=== PATIENT | female | born 1995 | race African-American/Black ===

== ENCOUNTER → 2016-09-22 | Outpatient (CLI) | payer OTHER ==
[2015-07-08 20:38] VITALS: BP 162/89
--- NOTE | 2016-09-23 10:29 | KCIC ---
PROCEDURE Pelvic ultrasound. HISTORY Abnormal uterine bleeding. TECHNIQUE Transabdominal imaging was performed. Transvaginal imaging was also performed to better evaluate the endometrial stripe and adnexa. COMPARISON None. FINDINGS Uterus measures 8.7 x 3.8 x 4.5 centimeters. Endometrial stripe is homogeneous measuring 11 millimeters in thickness. A few probable nabothian cysts are noted. There is no free pelvic fluid. Color flow and waveform is documented for both ovaries. Ovaries are slightly enlarged, 6.2 x 2.6 x 3.1 centimeters on the right and 4.3 x 3.1 x 3.3 centimeters on the left. Multiple follicles are noted bilaterally, although follicles are not predominantly peripheral. None of the follicles are dominant, the largest about 15 millimeters. IMPRESSION - No evidence of adnexal torsion or mass. - Slightly enlarged ovaries with multiple follicles, although the follicles are not peripherally positioned. Polycystic ovarian syndrome can still be considered clinically. - Nabothian cysts. Electronically signed by: Elton Apple MD (Sep 23, 2016 10:27:49)
== END | disposition home or self-care (01) ==
LOC: KCIC US 14:18
PROVIDERS: ATTEND Obstetrics & Gynecology
DX: N92.6 Irregular menstruation, unspecified (principal); N88.8 Other specified noninflammatory disorders of cervix uteri
CPT/HCPCS: 76830; 76856

== ENCOUNTER 2016-10-28 06:56 | Day surgery (SDC) | payer MEDICAID ==
[~2016-10-28] VITALS: Ht 167.6 cm; Wt 93.9 kg
[2016-10-28] MEDS ORDERED: fentaNYL PF VIAL 100 MCG/2 ML VIAL IV PRN ×2 (07:00)
[2016-10-28] MEDS ORDERED: PROCHLORPERAZINE 10 MG/2 ML VIAL. IV PRN (07:00)
[2016-10-28] MEDS ORDERED: ONDANSETRON PF 4 MG/2 ML VIAL. IV PRN (07:00)
[2016-10-28] MEDS ORDERED: HYDROmorphone 2 MG/ML VIAL IV PRN (07:00)
[2016-10-28] MEDS ORDERED: MORPHINE SULFATE 2 MG/ML DISP.SYRIN. IV PRN (07:00)
[2016-10-28] MEDS ORDERED: IV RINGERS,LACTATED 1000ML 1,000 ML IV SCH (07:00)
[2016-10-28] MEDS ORDERED: LIDOCAINE 1% 1 ML SYRINGE. ID PRN (07:00)
[2016-10-28] MEDS ORDERED: MEDR5TAB PO (07:27)
[2016-10-28] MEDS ORDERED: fentaNYL PF VIAL 100 MCG/2 ML VIAL ONE (07:47)
[2016-10-28] MEDS ORDERED: DEXAMETHASONE SOD PHOS 20 MG/5 ML VIAL. ONE (07:47)
[2016-10-28] MEDS ORDERED: LIDOCAINE 2% 100 MG/5 ML SYRINGE. ONE (07:47)
[2016-10-28] MEDS ORDERED: ONDANSETRON PF 4 MG/2 ML VIAL. ONE (07:47)
[2016-10-28] MEDS ORDERED: MIDAZOLAM HCL/PF 2 MG/2 ML VIAL. ONE (07:47)
[2016-10-28] MEDS ORDERED: PROPOFOL 20 ML IV ONE (07:47)
[2016-10-28] MEDS ORDERED: FAMOTIDINE 20 MG/2 ML VIAL ONE (07:47)
[2016-10-28] MEDS ORDERED: SEVOFLURANE 31 TO 60 MINUTES. IH ONE (09:00)
--- NOTE | 2016-10-28 09:12 | PDOC ---
BRIEF OPERATIVE NOTE Pre-Op Diagnosis Endometrial polyps Post-Op Diagnosis Same Procedure Performed Op [facility] [place] Surgeon Dr. Chacko Anesthesia Type: General Blood Loss Less than 10 ml Specimens Obtained endometrial polyps Findings nml size uterus with endometrial polyps Complications none Additional Remarks ptNÉSTOR Garcia Jr, MD October 28, 2016 09:12
--- NOTE | 2016-10-28 09:12 | DISCH ---
DISCHARGE INSTRUCTIONS Condition on Discharge Condition on Discharge: Stable Activity After Discharge Activity Instructions for Disc: Activity as tolerated Driving Instructions after Dis: Do not drive today Diet after Discharge Diet after Discharge: Regular Contacting the DRSaad after DC Call your doctor for: Concerns you may have Follow-Up Follow up with: Dr. Chacko in 1 week. NÉSTOR CHACKO Jr, MD October 28, 2016 09:12
[2016-10-28] MEDS ORDERED: HYDR-971 PO (09:22)
[2016-10-28] MEDS ORDERED: HYDROcodone/APAP 5/325MG 1 TAB TABLET PO ONE (09:45)
[2016-10-28 09:51] LABS: NEG OBC UR NEG; POS OBC UR POS
[2016-10-28 10:14] VITALS: BP 145/90
--- NOTE | 2016-10-28 10:20 | OP ---
DATE OF SURGERY: PREOPERATIVE DIAGNOSIS: Endometrial polyps. POSTOPERATIVE DIAGNOSIS: Endometrial polyps. PROCEDURE: Operative hysteroscopy. SURGEON: Néstor Chacko M.D. ANESTHESIA: GETA. ESTIMATED BLOOD LOSS: Less than ____ mL. COMPLICATIONS: None. FINDINGS: Normal size uterus with endometrial polyps. SUMMARY: A 21-year-old female who had known endometrial polyps from an office diagnostic hysteroscopy who was counseled to have operative hysteroscopy for removal of endometrial polyps with the Truclear device. The patient was counseled on risks, benefits and expectations and voiced a clear understanding to proceed. DESCRIPTION OF PROCEDURE: The patient was taken to surgery suite and placed in dorsal lithotomy position where she was prepped with Betadine solution and draped in a sterile fashion. After adequate anesthesia, a weighted speculum and curved [place] placed vaginally. The anterior lip of the cervix grasped with a single tooth tenaculum. Cervix was dilated with Viridiana dilators up to size 7 and the Truclear hysteroscope was then placed. There were multiple endometrial polyps. Fallopian tube ostia appeared patent bilaterally. The endometrial polyps were then removed with the Truclear device until there was homogenous endometrial cavity. The Truclear device was removed. Single tooth tenaculum and weighted speculum were removed. The patient tolerated the procedure well and was taken to recovery room in stable condition. Sponge count correct x 3. The total fluid volume was 1600, fluid loss was ____ mL. NÉSTOR CHACKO MD DR: DONNA/jim JOB#: [id number] / [id number]
--- NOTE | 2016-10-29 17:22 | PATHOLOGY ---
PATHOLOGY REPORT * * * * * * * * FINAL DIAGNOSIS: Endometrial curettings: - Early secretory endometrium. See comment. COMMENT: Microscopic sections of the endometrial curettings reveal segments of early secretory endometrium in addition to several segments of lower uterine segment and endocervical tissue. There is no evidence of hyperplasia or malignancy. REPORT ELECTRONICALLY SIGNED BY: Edgar Baker M.D. DATE/TIME: 10/29/2016 17:21 * * * * * * * * GROSS PATHOLOGY: Received in suction sack in formalin and labeled "endometrial polyp" are multiple fragments of brownish mucosa compatible with endometrium. The traffic representative curettings range in length from 1-3 mm in greatest dimension. These have an aggregate measurement of approximately 1 cm. They are placed in a tissue bag and submitted entirely in cassette A1. BRANDENK:maddy; d/t: 10/28-10/2016) INITIAL CPT CODE(S): A; 65481 Professional services performed [place] [facility] [place] [address] Technical services performed by [facility] at [address] [place] [address]. SPECIMEN(S) RECEIVED: A.Endometrial polyp CLINICAL HISTORY: Endometrial polyp PATIENT: DANILO HURTADO Rudy /AGE: 309/07/1995 (Age: 21) PATIENT #: [id number] ALT CASE #: SPECIMEN COLLECTION DATE: 10/28/2016 SPECIMEN RECEIVED DATE: 10/28/2016 [facility] - [address] [place] [address] - PHONE: [phone] * * * END OF REPORT * * *
== END 2016-10-28 10:50 | disposition home or self-care (01) ==
LOC: SURG 06:56
PROVIDERS: ATTEND Obstetrics & Gynecology
DX: N84.0 Polyp of corpus uteri (principal); I10 Essential (primary) hypertension
CPT/HCPCS: 58558; 81025; J0690; J1100; J2250; J2405; J2704; J3010; S0028; 88305

== ENCOUNTER 2019-02-19 15:34 | Emergency (ER) | payer MEDICAID, OTHER ==
[~2019-02-19] VITALS: Ht 172.7 cm; Wt 104.3 kg
[~2019-02-19 15:34] MED LIST: HYDR-3164 PO; MEDR5TAB PO
[2019-02-19 17:36] VITALS: BP 161/85
[2019-02-19 18:10] LABS: BASO # 0.1 x10^3/uL (0.0-0.2); BASO % 1 % (0-3); EOS % 1 % (0-3); HEMATOCRIT 39.2 % (36.0-47.0); HEMOGLOBIN 13.1 g/dL (12.0-15.5); LYMPH # 2.3 x10^3/uL (1.0-4.8); LYMPH % 25 % (24-48); MEAN CORPUSCULAR HEMOGLOBIN 28 pg (25-35); MEAN CORPUSCULAR HGB CONC 34 g/dL (31-37); MEAN CORPUSCULAR VOLUME 84 fL (79-100); MONO # 0.5 x10^3/uL (0.0-1.1); MONO % 5 % (0-9); NEUT # 6.5 x10^3/uL (1.8-7.7); NEUT % 69 % (31-73); PLATELET COUNT 226 x10^3/uL (140-400); RED BLOOD COUNT 4.67 x10^6/uL (3.50-5.40); RED CELL DISTRIBUTION WIDTH 14.4 % (11.5-14.5); WHITE BLOOD COUNT 9.4 x10^3/uL (4.0-11.0)
[2019-02-19 18:14] LABS: BILIRUBIN,URINE NEGATIVE (NEG); CLARITY,URINE CLEAR; COLOR,URINE YELLOW; NITRITE,URINE NEGATIVE (NEG); PROTEIN,URINE NEGATIVE (NEG-TRACE); UROBILINOGEN,URINE 0.2 mg/dL (0.2 mg/dL)
[2019-02-19 18:25] LABS: SQUAMOUS EPITHELIAL CELL,UR MOD /LPF
[2019-02-19 18:26] LABS: CALCIUM 9.3 mg/dL (8.5-10.1); CREATININE 0.9 mg/dL (0.6-1.0); GFR 93.9; POTASSIUM 3.6 mmol/L (3.5-5.1)
[2019-02-19 18:26] LABS: BACTERIA,URINE 0 /HPF (0-FEW); WBC,URINE 0 /HPF (0-4)
--- NOTE | 2019-02-19 18:41 | PHYS DOC ---
Past Medical History Past Medical History: Hypertension, Other Additional Past Medical Histor: PCOS Past Surgical History: No Surgical History Alcohol Use: None Drug Use: None Adult General Chief Complaint Chief Complaint: VAGINAL BLEEDING HPI HPI Patient is a 23 year old AA female who presents tot he ER with complaints of irregular vaginal bleeding. PT states she has been having dark red vaginal discharge with small clots for the last week. She reports her LMP was on 01/26/19 and states that the bleeding started before her next cycle was to start. She took a test at home that was negative. She denies any abnormal vaginal discharge or odor prior to the onset of bleeding. Pt denies any pain. ROS Pt denies any fever, cough, abdominal pain, dysuria, hematuria, or back pain. She denies any dizziness or lightheadedness. She denies any nausea, vomiting, or diarrhea. All other ROS is neg unless otherwise noted in HPI. Review of Systems Review of Systems See Above Allergies Allergies Allergies Coded Allergies Type Severity Reaction Last Updated Verified No Known Drug Allergies 10/26/16 No Physical Exam Physical Exam See Above Constitutional: Well developed, well nourished, no acute distress, non-toxic appearance, obese. [] HENT: Normocephalic, atraumatic, bilateral external ears normal, nose normal. [] Eyes: PERRLA, EOMI, conjunctiva normal, no discharge. [] Neck: Normal range of motion, no tenderness, supple, no stridor. [] Cardiovascular:Heart rate regular rhythm Lungs & Thorax: Respirations even and unlabored, no retractions, no respiratory distress Pelvic Exam: Product Assurance Engineer present Anabell POMPA Abdomen: Nontender, soft External Genitalia: Normal Skin Speculum: Normal vaginal mucosa, small amount of dark bloody cervical discharge noted Bimanual: No adnexal masses or tenderness, No CMT Skin: Warm, dry, no erythema, no rash. [] Extremities: No cyanosis, ROM intact, no edema. [] Neurologic: Alert and oriented X 3, no focal deficits noted. [] Psychologic: Affect normal, judgement normal, mood normal. [] Current Patient Data Vital Signs Vital Signs Date Time Temp Pulse Resp B/P (MAP) Pulse Ox O2 Delivery O2 Flow Rate FiO2 02/19/19 17:36 98.4 112 18 161/85 (110) 97 Room Air 98.4 Lab Values Laboratory Tests Test 02/19/19 17:45 02/19/19 18:00 02/19/19 18:03 Urine Collection Type Unknown Urine Color Yellow Urine Clarity Clear Urine pH 6.0 Urine Specific [place] <=1.005 Urine Protein Negative mg/dL (NEG-TRACE) Urine Glucose (UA) Negative mg/dL (NEG) Urine Ketones (Stick) Negative mg/dL (NEG) Urine Blood Large (NEG) Urine Nitrite Negative (NEG) Urine Bilirubin Negative (NEG) Urine Urobilinogen Dipstick 0.2 mg/dL (0.2 mg/dL) Urine Leukocyte Esterase Negative (NEG) Urine RBC 11-20 /HPF (0-2) Urine WBC 0 /HPF (0-4) Urine Squamous Epithelial Cells Mod /LPF Urine Bacteria 0 /HPF (0-FEW) Urine Mucus Slight /LPF White Blood Count 9.4 x10^3/uL (4.0-11.0) Red Blood Count 4.67 x10^6/uL (3.50-5.40) Hemoglobin 13.1 g/dL (12.0-15.5) Hematocrit 39.2 % (36.0-47.0) Mean Corpuscular Volume 84 fL (79-100) Mean Corpuscular Hemoglobin 28 pg (25-35) Mean Corpuscular Hemoglobin Concent 34 g/dL (31-37) Red Cell Distribution Width 14.4 % (11.5-14.5) Platelet Count 226 x10^3/uL (140-400) Neutrophils (%) (Auto) 69 % (31-73) Lymphocytes (%) (Auto) 25 % (24-48) Monocytes (%) (Auto) 5 % (0-9) Eosinophils (%) (Auto) 1 % (0-3) Basophils (%) (Auto) 1 % (0-3) Neutrophils # (Auto) 6.5 x10^3/uL (1.8-7.7) Lymphocytes # (Auto) 2.3 x10^3/uL (1.0-4.8) Monocytes # (Auto) 0.5 x10^3/uL (0.0-1.1) Eosinophils # (Auto) 0.0 x10^3/uL (0.0-0.7) Basophils # (Auto) 0.1 x10^3/uL (0.0-0.2) Sodium Level 142 mmol/L (136-145) Potassium Level 3.6 mmol/L (3.5-5.1) Chloride Level 103 mmol/L (98-107) Carbon Dioxide Level 26 mmol/L (21-32) Anion Gap 13 (6-14) Blood Urea Nitrogen 9 mg/dL (7-20) Creatinine 0.9 mg/dL (0.6-1.0) Estimated GFR (Cockcroft-Gault) 93.9 Glucose Level 96 mg/dL (70-99) Calcium Level 9.3 mg/dL (8.5-10.1) POC Urine HCG, Qualitative Hcg negative (Negative) Laboratory Tests 02/19/19 18:00 Laboratory Tests 02/19/19 18:00 Microbiology 02/19/19 Wet Prep - Final, Complete EKG EKG [] Radiology/Procedures Radiology/Procedures [] Course & Med Decision Making Course & Med Decision Making Pertinent Labs and Imaging studies reviewed. (See chart for details) dx: Dysfunctional uterine bleeding Patient denies any concern for sexually transmitted infection, low suspicion for STI after physical exam. Wet prep is unremarkable, urine is unremarkable. Urine hCG is negative. CBC unremarkable, BMP unremarkable. Patient was advised to follow-up with Dr. Chacko for further evaluation and treatment of irregular menses. Patient verbalized an understanding of home care, medications, follow-up, and return to ED instructions and was in agreement with the plan of care. [] Dragon Disclaimer Dragon Disclaimer This electronic medical record was generated, in whole or in part, using a voice recognition dictation system. Departure Departure Impression: Primary Impression: Dysfunctional uterine bleeding Disposition: 01 HOME, SELF-CARE Condition: STABLE Referrals: NO PCP (PCP) NÉSTOR CHACKO Jr, MD Patient Instructions: Uterine Bleeding, Dysfunctional, [id number] Additional Instructions: Follow-up with Dr. Chacko for further evaluation of irregular menstrual cycle. Return to the ER if your symptoms worsen. ANDRIA MCCRAY CABLE ASSEMBLER AND SWAGER Feb 19, 2019 18:41
[2019-02-21 19:10] LABS: GC PROBE Negative (Negative)
== END 2019-02-19 19:02 | disposition home or self-care (01) ==
LOC: ER 15:34
DX: N93.8 Other specified abnormal uterine and vaginal bleeding (principal); I10 Essential (primary) hypertension
CPT/HCPCS: 36415; 80048; 81001; 81025; 85025; 87491; 87591; 99284; Q0111

== ENCOUNTER 2019-06-02 08:17 | Emergency (ER) | payer OTHER ==
[~2019-06-02] VITALS: Ht 172.7 cm; Wt 104.3 kg
[2019-06-02] MEDS ORDERED: ONDANSETRON ODT 4 MG TAB.RAPDIS. PO ONE (09:15)
[2019-06-02 09:28] LABS: BILIRUBIN,URINE NEGATIVE (NEG); CLARITY,URINE CLEAR; COLOR,URINE AMBER; NITRITE,URINE NEGATIVE (NEG); PH,URINE 5.5; PROTEIN,URINE NEGATIVE (NEG-TRACE); UROBILINOGEN,URINE 0.2 mg/dL (0.2 mg/dL)
[2019-06-02 09:45] LABS: BACTERIA,URINE FEW /HPF (0-FEW); RBC,URINE OCC /HPF (0-2); SQUAMOUS EPITHELIAL CELL,UR MANY /LPF
[2019-06-02] MEDS ORDERED: ONDA4TAB7 PO (10:18)
[2019-06-02] MEDS ORDERED: HYDR25TA PO (10:18)
--- NOTE | 2019-06-02 10:18 | PHYS DOC ---
Past Medical History Past Medical History: Hypertension, Other Additional Past Medical Histor: PCOS Past Surgical History: No Surgical History Alcohol Use: None Drug Use: None Adult General Chief Complaint Chief Complaint: DIZZY/LIGHT HEADED HPI HPI Patient is a 23 year old female patient with history of hypertension who presents with complaining of dizziness and nausea. Patient states she had dizziness and nausea since last night that getting worse since this morning. Patient denies vomiting, focal neuro deficit, headache, shortness of breath, chest pain, , fever and chills, history of the same problem. Patient states she cannot sleep at night for several days and thinks that the dizziness is related to lack of sleep. Review of Systems Review of Systems Constitutional: Denies fever or chills [] Eyes: Denies change in visual acuity, redness, or eye pain [] HENT: Denies nasal congestion or sore throat [] Respiratory: Denies cough or shortness of breath [] Cardiovascular: No additional information not addressed in HPI [] GI: Denies abdominal pain,vomiting, bloody stools or diarrhea , reports nausea[] : Denies dysuria or hematuria [] Musculoskeletal: Denies back pain or joint pain [] Integument: Denies rash or skin lesions [] Neurologic: Denies headache, focal weakness or sensory changes [] Endocrine: Denies polyuria or polydipsia [] All other systems were reviewed and found to be within normal limits, except as documented in this note. Current Medications Current Medications Current Medications Medications (Trade) Dose Ordered Sig/Poonam Start Time Stop Time Status Last Admin Dose Admin Ondansetron HCl (Zofran Odt) 4 mg 1X ONCE 06/02/19 09:15 06/02/19 09:16 DC 06/02/19 09:11 4 MG Allergies Allergies Allergies Coded Allergies Type Severity Reaction Last Updated Verified No Known Drug Allergies 10/26/16 No Physical Exam Physical Exam Constitutional: Well developed, well nourished, mild distress, non-toxic appearance. [] HENT: Normocephalic, atraumatic, bilateral external ears normal, oropharynx moist, no oral exudates, nose normal. [] Eyes: PERRLA, EOMI, conjunctiva normal, no discharge. [] Neck: Normal range of motion, no tenderness, supple, no stridor. [] Cardiovascular:Heart rate regular rhythm, no murmur [] Lungs & Thorax: Bilateral breath sounds clear to auscultation [] Abdomen: Bowel sounds normal, soft, no tenderness, no masses, no pulsatile masses. [] Skin: Warm, dry, no erythema, no rash. [] Back: No tenderness, no CVA tenderness. [] Extremities: No tenderness, no cyanosis, no clubbing, ROM intact, no edema. [] Neurologic: Alert and oriented X 3, normal motor function, normal sensory function, no focal deficits noted. [] Psychologic: Affect normal, judgement normal, mood normal. [] Current Patient Data Vital Signs Vital Signs Date Time Temp Pulse Resp B/P (MAP) Pulse Ox O2 Delivery O2 Flow Rate FiO2 06/02/19 08:34 97.5 98 18 135/89 (104) 96 97.5 Lab Values Laboratory Tests Test 06/02/19 08:45 06/02/19 08:46 Urine Collection Type Unknown Urine Color [place] Urine Clarity Clear Urine pH 5.5 Urine Specific [place] >=1.030 Urine Protein Negative mg/dL (NEG-TRACE) Urine Glucose (UA) Negative mg/dL (NEG) Urine Ketones (Stick) Trace mg/dL (NEG) Urine Blood Negative (NEG) Urine Nitrite Negative (NEG) Urine Bilirubin Negative (NEG) Urine Urobilinogen Dipstick 0.2 mg/dL (0.2 mg/dL) Urine Leukocyte Esterase Small (NEG) Urine RBC Occ /HPF (0-2) Urine WBC 1-4 /HPF (0-4) Urine Squamous Epithelial Cells Many /LPF Urine Bacteria Few /HPF (0-FEW) Urine Mucus Marked /LPF POC Urine HCG, Qualitative Hcg negative (Negative) EKG EKG [] Radiology/Procedures Radiology/Procedures [] Course & Med Decision Making Course & Med Decision Making Pertinent Labs reviewed. (See chart for details) Evaluation of patient in ER showed 23-year-old female patient with complaining of neck, sleep and nausea and dizziness. Patient had unremarkable physical exam and negative test and UA. Patient for definitive treatment with Zofran in ER. Plan discharge patient home to diagnose of nausea and insomnia. Dragon Disclaimer Dragon Disclaimer This electronic medical record was generated, in whole or in part, using a voice recognition dictation system. Departure Departure Impression: Primary Impression: Nausea Additional Impressions: Insomnia Dizziness Disposition: HOME, SELF-CARE (at 1014) Condition: IMPROVED Referrals: NO PCP (PCP) Patient Instructions: Dizziness, Insomnia, Nausea, Adult Additional Instructions: Drink plenty of liquids Follow-up with your primary care physician in 3-5 days Return to ER if not getting better Scripts Ondansetron Hcl (ZOFRAN) 4 Mg Tablet 1 TAB PO PRN Q6-8HRS for nausea, #12 TAB Prov: ELLIS ELLIOTT MD 06/02/19 Hydroxyzine Hcl (HYDROXYZINE HCL) 25 Mg Tablet 1 TAB PO QHS PRN for itching, #10 TAB Prov: ELLIS ELLIOTT MD 06/02/19 Problem Qualifiers Additional Impressions: Insomnia Insomnia type: unspecified Qualified Codes: G47.00 - Insomnia, unspecified ELLIS ELLIOTT MD Jun 02, 2019 10:18
[2019-06-02 10:22] VITALS: BP 134/91
== END 2019-06-02 10:24 | disposition home or self-care (01) ==
LOC: ER 08:17
DX: R42 Dizziness and giddiness (principal); G47.00 Insomnia, unspecified; I10 Essential (primary) hypertension
CPT/HCPCS: 81001; 81025; 87086; 99284; Q0162

== ENCOUNTER 2019-12-06 06:18 | Emergency (ER) | payer OTHER ==
[~2019-12-06] VITALS: Ht 172.7 cm; Wt 104.5 kg
[~2019-12-06 06:18] MED LIST changes: +HYDR25TA PO; +ONDA4TAB7 PO
--- NOTE | 2019-12-06 06:33 | PHYS DOC ---
Past Medical History Past Medical History: Hypertension, Other Additional Past Medical Histor: PCOS Past Surgical History: No Surgical History Smoking Status: Never Smoker Alcohol Use: None Drug Use: None General Adult EDM: Chief Complaint: PAIN ON URINATION HPI: HPI: Patient is a 24 year old female presents with report of burning with urination which is been ongoing since yesterday. Denies nausea or vomiting. Denies fever or chills. Denies trauma. Denies . Review of Systems: Review of Systems: Constitutional: Denies fever or chills Eyes: Denies redness or eye pain HENT: Denies nasal congestion or sore throat Respiratory: Denies cough or shortness of breath Cardiovascular: Denies chest pain or palpitations GI: Denies abdominal pain, nausea, or vomiting : Denies hematuria; reports dysuria Musculoskeletal: Denies back pain or joint pain Integument: Denies rash or skin lesions Neurologic: Denies headache, focal weakness or sensory changes Complete systems were reviewed and found to be within normal limits, except as documented in this note. Allergies: Allergies: Allergies Coded Allergies Type Severity Reaction Last Updated Verified No Known Drug Allergies 10/26/16 No Physical Exam: PE: Constitutional: Well developed, well nourished, no acute distress, non-toxic appearance HENT: Normocephalic, atraumatic Eyes: Conjunctiva normal, no discharge Neck: Normal range of motion, no tenderness, supple Lungs & Thorax: No respiratory distress, no wheezing Abdomen: Soft, no tenderness Skin: Warm, dry, no erythema, no rash Extremities: No tenderness, ROM intact Neurologic: Alert and oriented X 3, no focal deficits noted Psychologic: Affect normal, judgment normal EKG: EKG: [] Radiology/Procedures: Radiology/Procedures: [] Course & Med Decision Making: Course & Med Decision Making Pertinent Lab studies reviewed. (See chart for details) Patient presents with report of dysuria. UA with signs of infection. Pyridium and keflex initiated. Upreg negative. Patient stable for discharge with outpatient follow-up with PCP. Discussed findings and plan with patient, who acknowledges understanding and agreement. Jacob Disclaimer: Jacob Disclaimer: This electronic medical record was generated, in whole or in part, using a voice recognition dictation system. Departure Departure Impression: Primary Impression: Urinary tract infection Qualified Codes: N30.00 - Acute cystitis without hematuria Disposition: HOME, SELF-CARE Condition: STABLE Referrals: NO PCP (PCP) Patient Instructions: Urinary Tract Infection, [place]ag-[place]inu Scripts Cephalexin (KEFLEX) 500 Mg Capsule 500 MG PO TID for 7 Days, #21 CAP Prov: KATIE SHRESTHA DO 12/06/19 Phenazopyridine Hcl (PYRIDIUM) 200 Mg Tablet 200 MG PO TID, #6 TAB Prov: KATIE SHRESTHA DO 12/06/19 Justicifation of Admission Dx: Justifications for Admission: Justification of Admission Dx: N/A KATIE SHRESTHA DO Dec 06, 2019 06:32
[2019-12-06 06:50] LABS: BILIRUBIN,URINE NEGATIVE (NEG); CLARITY,URINE CLEAR; COLOR,URINE YELLOW; NITRITE,URINE NEGATIVE (NEG); PH,URINE 6.5 (<5.0-8.0); PROTEIN,URINE 30 mg/dL (NEG-TRACE); UROBILINOGEN,URINE 0.2 mg/dL (0.2 mg/dL)
[2019-12-06 07:00] LABS: BACTERIA,URINE MODERATE /HPF (0-FEW); RBC,URINE 0 /HPF (0-2); SQUAMOUS EPITHELIAL CELL,UR OCC /LPF
[2019-12-06] MEDS ORDERED: CEPHALEXIN 250 MG CAPSULE. PO ONE (07:15)
[2019-12-06] MEDS ORDERED: PHENAZOPYRIDINE 200 MG TABLET. PO ONE (07:15)
[2019-12-06] MEDS ORDERED: PHEN-318 PO (07:17)
[2019-12-06] MEDS ORDERED: CEPH-264 PO (07:17)
[2019-12-06 07:45] VITALS: BP 147/85
== END 2019-12-06 07:45 | disposition home or self-care (01) ==
LOC: ER 06:18
DX: N30.00 Acute cystitis without hematuria (principal); R30.0 Dysuria; I10 Essential (primary) hypertension
CPT/HCPCS: 81001; 81025; 87086; 99283

== ENCOUNTER 2020-04-05 11:56 | Emergency (ER) | payer MEDICAID, OTHER ==
[~2020-04-05] VITALS: Ht 172.7 cm; Wt 107.0 kg
[~2020-04-05 11:56] MED LIST changes: +CEPH-264 PO; +PHEN-318 PO
[2020-04-05 12:21] VITALS: BP 147/85
[2020-04-05] MEDS ORDERED: CEPH-264 PO (12:29)
--- NOTE | 2020-04-05 12:29 | PHYS DOC ---
Past Medical History Past Medical History: No Pertinent History, Hypertension, Other Additional Past Medical Histor: PCOS Past Surgical History: No Surgical History Smoking Status: Never Smoker Alcohol Use: None Drug Use: None General Adult EDM: Chief Complaint: ABSCESS HPI: HPI: History obtained from patient. Patient is a 24-year-old female with no reported PMH who presents with chief complaint of sacral pain. Patient states she has had gradual onset sacral pain for the past 2 days. She states that it is somewhat uncomfortable to sit down. Has not tried medicine at home to help. Denies any history of pilonidal cyst or abscess. Denies drainage. Denies any k nown wound. She does state that she was shaving recently and may have nicked the skin. Denies any IV drug use. Denies any history of MRSA. Denies any objective fevers. Denies any trauma. Denies any back pain. No other complaints. Review of Systems: Review of Systems: Constitutional: Denies fever or chills. [] Eyes: Denies change in visual acuity. [] HENT: Denies nasal congestion or sore throat. [] Respiratory: Denies cough or shortness of breath. [] Cardiovascular: Denies chest pain or edema. [] GI: Denies abdominal pain, nausea, vomiting, bloody stools or diarrhea. [] : Denies dysuria. [] Musculoskeletal: Denies back pain or joint pain. [] Integument: Denies rash. [] Neurologic: Denies headache, focal weakness or sensory changes. [] Endocrine: Denies polyuria or polydipsia. [] Lymphatic: Denies swollen glands. [] Psychiatric: Denies depression or anxiety. [] Heart Score: Risk Factors: Risk Factors: DM, Current or recent (<one month) smoker, HTN, HLP, family history of CAD, obesity. Risk Scores: Score 0 - 3: 2.5% MACE over next 6 weeks - Discharge Home Score 4 - 6: 20.3% MACE over next 6 weeks - Admit for Clinical Observation Score 7 - 10: 72.7% MACE over next 6 weeks - Early Invasive Strategies Allergies: Allergies: Allergies Coded Allergies Type Severity Reaction Last Updated Verified No Known Drug Allergies 10/26/16 No Physical Exam: PE: Constitutional: Well developed, well nourished, no acute distress, non-toxic appearance. [] HENT: Normocephalic, atraumatic, bilateral external ears normal, oropharynx moist, no oral exudates, nose normal. [] Eyes: PERRLA, EOMI, conjunctiva normal, no discharge. [] Neck: Normal range of motion, no tenderness, supple, no stridor. [] Cardiovascular:Heart rate regular rhythm, no murmur [] Lungs & Thorax: Bilateral breath sounds clear to auscultation [] Abdomen: soft, no tenderness, no masses, no pulsatile masses. [] Skin: Warm, dry, no erythema, no rash. [] Back: Slight abrasion noted to the superior gluteal cleft. No palpable fluctuance noted. No signs of pilonidal cyst or abscess. No overlying cellulitic skin changes, erythema, or induration. Extremities: No tenderness, no cyanosis, no clubbing, ROM intact, no edema. [] Neurologic: Alert and oriented X 3, normal motor function, normal sensory function, no focal deficits noted. [] Psychologic: Affect normal, judgement normal, mood normal. [] Current Patient Data: Vital Signs: Vital Signs Date Time Temp Pulse Resp B/P (MAP) Pulse Ox O2 Delivery O2 Flow Rate FiO2 04/05/20 12:21 99.5 120 14 147/85 (105) 96 Room Air 99.5 EKG: EKG: [] Radiology/Procedures: Radiology/Procedures: [] Course & Med Decision Making: Course & Med Decision Making Pertinent Labs and Imaging studies reviewed. (See chart for details) [] Patient is a very pleasant 24-year-old female who presents with chief complaint of sacral pain worse with sitting. Initial vital signs notable for mild tachycardia. However when she was sitting down in the exam room without intervention her heart rate improved significantly. Temperature 99.5. Exam grossly unremarkable. Slight abrasion overlying the superior gluteal cleft. Exam is not consistent with drainable fluid collection. However she may be developing a very early pilonidal cyst versus abscess. However, she does note that she recently shaved in that area and could develop mild folliculitis. She will be given a short course of oral Keflex. She was instructed to have the wound reevaluated in 2 to 3 days. She will be given referral to primary care physician. Return precautions discussed and understood. Stable for discharge home. Jacob Disclaimer: Jacob Disclaimer: This electronic medical record was generated, in whole or in part, using a voice recognition dictation system. Departure Departure Impression: Primary Impression: Sacral pain Disposition: 01 DC HOME SELF CARE/HOMELESS Condition: STABLE Referrals: NO PCP (PCP) Patient Instructions: Pilonidal Cyst Scripts Cephalexin (KEFLEX) 500 Mg Capsule 1 CAP PO QID for 5 Days, #20 CAP 0 Refills Prov: RADHA RAY DO 04/05/20 RADHA RAY DO Apr 05, 2020 12:29
== END 2020-04-05 12:42 | disposition home or self-care (01) ==
LOC: ER 11:56
DX: M53.3 Sacrococcygeal disorders, not elsewhere classified (principal); I47.1 Supraventricular tachycardia; I10 Essential (primary) hypertension
CPT/HCPCS: 99283

== ENCOUNTER 2020-12-23 17:03 | Emergency (ER) | payer MEDICAID ==
[~2020-12-23] VITALS: Ht 172.7 cm; Wt 118.8 kg
[2020-12-23 19:30] VITALS: BP 152/100
== END 2020-12-23 19:51 | disposition left against medical advice (07) ==
LOC: ER 17:03
DX: H92.02 Otalgia, left ear (principal); Z53.21 Procedure and treatment not carried out due to patient leaving prior to being seen by health care provider